=== PATIENT | female | born 1940 | race Caucasian/White ===

== ENCOUNTER → 2019-12-16 13:21 | Outpatient (ROUT) | payer MEDICARE, SELFPAY ==
[2019-12-19 23:36] LABS: COVID19 Sendout Not Detected (Not Detected)
== END ==
PROVIDERS: Visit Provider Internal Medicine
DX: Z11.59 Encounter for screening for other viral diseases (principal)
CPT/HCPCS: 87635

== ENCOUNTER → 2019-12-18 11:14 | Outpatient (ROUT) | payer MEDICARE, SELFPAY ==
[2019-12-21 19:38] LABS: Creatinine, 24 Urine 448 mg/24 hr (800-1800); Creatinine,Urine 99.6 mg/dL (Not Estab.); Dopamine, Ur 24hr 45 ug/24 hr (0-510); Epinephrine, U 24hr 1 ug/24 hr (0-20); Norepinephrine Ur 24hr 10 ug/24 hr (0-135)
[2019-12-23 07:10] LABS: Normetanephrine Total 226 ug/24 hr (131-612); Urine, Metanephrine 152 ug/L (Undefined); Urine, Normetanephrine 502 ug/L (Undefined)
== END ==
PROVIDERS: Visit Provider Internal Medicine Nephrology
DX: I70.1 Atherosclerosis of renal artery (principal); N17.9 Acute kidney failure, unspecified
CPT/HCPCS: 82384; 83835

== ENCOUNTER → 2019-12-23 13:14 | Outpatient (CLI) | payer MEDICARE, SELFPAY ==
--- NOTE | 2019-12-23 | DI.RAD.S_ITS ---
PROCEDURE: XR CHEST 2V INDICATIONS: Pneumonia, unspecified organism TECHNIQUE: 2 views of the chest were acquired. COMPARISON: None. FINDINGS: Surgical changes and devices: Dual-chamber cardiac pacemaking device and leads appear normal.. Lungs and pleura: Lungs are mildly edematous. There are small sub pulmonic bilateral pleural effusions, left greater than right. No pneumothorax. Mediastinum: Mediastinal contours are normal. Heart size is mildly enlarged. Bones and chest wall: No suspicious bony abnormalities. Soft tissues appear unremarkable. IMPRESSION: Mild CHF pattern, small bilateral left greater than right pleural effusions. Mild cardiomegaly, mild generalized pulmonary edema. Pacemaker normal. Dictated by: Janes Faith M.D. on 12/23/2019 at 14:09 Approved by: Janes Faith M.D. on 12/23/2019 at 14:11
== END ==
PROVIDERS: Referring Provider Nurse Practitioner; Visit Provider Nurse Practitioner
DX: J18.9 Pneumonia, unspecified organism (principal); I50.1 Left ventricular failure, unspecified; J90 Pleural effusion, not elsewhere classified; I51.7 Cardiomegaly; Z95.0 Presence of cardiac pacemaker
CPT/HCPCS: 71046

== ENCOUNTER → 2019-12-26 11:01 | Outpatient (CLI) | payer MEDICARE, SELFPAY | PROVIDERS: Referring Provider Nurse Practitioner; Visit Provider Nurse Practitioner | DX: R07.89 Other chest pain (principal) | CPT/HCPCS: 93005 ==

== ENCOUNTER 2019-12-26 13:33 | Emergency (ER) | payer MEDICARE, SELFPAY ==
[2019-12-26] VITALS (14 sets, daily range): BP systolic 145–197; BP diastolic 65–86; PULSE 60–87; RESP 11–26; TEMP 36.8; O2SAT 92–97; BMI 32.3
--- NOTE | 2019-12-26 13:36 | DI.RAD.S_ITS ---
PROCEDURE: XR CHEST 1V INDICATIONS: chest pain TECHNIQUE: One view of the chest was acquired. COMPARISON: [facility], CR, XR CHEST 2V, 12/23/2019, 13:19. FINDINGS: Surgical changes and devices: Cardiac pacer.. Retrocardiac opacity. Bibasilar atelectasis. There is also scattered ground-glass opacity in the perihilar regions and lung bases no pneumothorax. Cannot exclude small left pleural effusion. Mediastinum: Mediastinal contours appear normal. Heart size is normal. Bones and chest wall: No suspicious bony lesions. Overlying soft tissues appear unremarkable. IMPRESSION: Widespread bilateral ground-glass opacities suggestive of pulmonary edema. Additional retrocardiac opacity could represent atelectasis/aspiration versus pneumonia. Technically cannot exclude small left pleural effusion. If there is persistent clinical diagnostic uncertainty, continued surveillance with short interval chest radiographs after treatment is recommended. Dictated by: Armando Kitchen M.D. on 12/26/2019 at 14:47 Approved by: Armando Kitchen M.D. on 12/26/2019 at 14:51
[2019-12-26 14:22] LABS: INR 1.2 (0.9-1.3); Prothrombin Time 13.5 SECONDS (10.1-12.7)
[2019-12-26 14:24] LABS: Add Manual Diff / Slide Review NO; Basophils Absolute Auto 0 /uL (0-100); Basophils Percent Auto 0.6 % (0-2); Eosinophils Absolute Auto 200 /uL (0-450); Eosinophils Percent Auto 2.6 % (2-4); Hematocrit 28.3 % (36-46); Hemoglobin 9.1 g/dL (12.0-16.0); Lymphocytes Absolute Auto 2200 /uL (1100-4500); Lymphocytes Percent Auto 36.7 % (25-40); Mean Corpuscular HGB Conc 32.3 % (30-36); Mean Corpuscular Hemoglobin 28.8 PG (26-34); Mean Corpuscular Volume 89.2 fL (80-100); Monocytes Absolute Auto 500 /uL (0-900); Monocytes Percent Auto 9.2 % (3-14); Neutrophils Absolute Auto 3000 /uL (1500-7000); Neutrophils Percent Auto 50.9 % (50-75); Platelet Count 174 X10^3/uL (150-400); Red Blood Cell Count 3.17 X10^6/uL (4.0-5.2); Red Cell Distribution Width 14.9 % (11.6-14.8); White Blood Cell Count 5.9 X10^3/uL (4.5-11.0)
[2019-12-26 14:25] LABS: PTT Partial Thromboplastin Tim 27 SECONDS (26.4-36.2)
[2019-12-26 14:27] LABS: Alanine Aminotransferase 14 IU/L (<35); Albumin 3.7 g/dL (3.5-5.0); Albumin Globulin Ratio 1.3 (1.0-2.8); Alkaline Phosphatase 89 U/L (38-126); Aspartate Aminotransferase 21 IU/L (14-36); BUN Creatinine Ratio 15.3 (6-22); Bilirubin Total 0.4 mg/dL (0.2-1.3); Blood Urea Nitrogen 20 mg/dL (7-17); Calcium 9.3 mg/dL (8.4-10.2); Carbon Dioxide 30 mmol/L (22-32); Chloride 101 mmol/L (98-107); Creatine Kinase 39 U/L (30-135); Globulin 2.9 g/dL (1.7-4.1); Glucose 134 mg/dL (80-110); HEMOLYSIS < 15 (0-50); Lipase 42 U/L (23-300); Potassium 3.8 mmol/L (3.4-5.1); Sodium 137 mmol/L (137-145); Total Protein 6.6 g/dL (6.3-8.2)
[2019-12-26 14:39] LABS: Troponin I 0.024 ng/mL (0.01-0.034)
--- NOTE | 2019-12-26 15:46 | ED_ITS ---
HPI - SOB/Dyspnea General Chief Complaint: Shortness of Breath/Dyspnea Stated Complaint: Chest Pain Time Seen by Provider: 12/26/19 15:24 Source: EMS Mode of arrival: EMS History of Present Illness HPI Narrative: CC: SOB HPI: The patient is an 79-year-old female who is a [facility]. The patient states that she is in rehab for a blood pressure that is bouncing all around. She developed chest tightness associated with shortness of breath. She states that she becomes short of breath shortly after getting out of bed and moving around. At rest she is not very short of breath. She has had pressure and tightness in her chest which lasts for a short time. She denies any shoulder pain arm pain neck pain jaw pain or back pain. She denies any recent fall or injury. She has had generalized weakness and fatigue. She denies a history of congestive heart failure previous myocardial infarction asthma diabetes mellitus but admits to history of hypertension. She has had no fevers but has had intermittent chills and sweats. She denies any headache nasal drainage sinus congestion dysphagia. She has had a dry unproductive cough with shortness of breath dizziness and lightheadedness. She has had nausea but no vomiting diarrhea. She has had no urinary symptoms. She denies a history of pulmonary emboli or deep vein thrombophlebitis as well as hepatitis TB or HIV. She has had no Sulph[place] it exposure. She states that she smokes cigarettes for a brief period in her use but has not drink alcohol or use any drugs such as marijuana. Related Data Previous Rx's Medication Instructions Recorded nitroglycerin 0.4 mg SL Q5-15M PRN #25 tab 12/26/19 Allergies Allergy/AdvReac Type Severity Reaction Status Date / Time amlodipine Allergy Verified 12/26/19 13:42 amoxicillin Allergy Verified 12/26/19 13:42 Cephalosporins Allergy Verified 12/26/19 13:42 clarithromycin Allergy Verified 12/26/19 13:42 enalapril Allergy Verified 12/26/19 13:42 levofloxacin Allergy Verified 12/26/19 13:42 spironolactone Allergy Verified 12/26/19 13:42 sulfamethoxazole Allergy Verified 12/26/19 13:42 trimethoprim Allergy Verified 12/26/19 13:42 Review of Systems Review of Systems Narrative: Her review of systems were all negative except for those mentioned in the history of present illness. Patient History Social History Smoking Status: Never smoker Smoking Status: Never smoker Substance Use Type: does not use Exam Narrative Exam Narrative: PHYSICAL EXAM: CONSTITUTIONAL: Awake, Alert, Oriented, Coherent, Cooperative in NAD. Does not appear toxic or ill. HEAD: AT/NC EENT: PERRL, FROM of eyes, no discharge,. NOSE:No epistaxis or nasal drainage MOUTH:Oral mucosa is moist and pink, . NECK: Supple, no obvious JVD, Trachea is midline without stridor, no palpable LN. SPINE: Palpationof the cervical, Thoracic, Lumbar or Sacral spine reveals no gross deformity or tenderness. No CVA tenderness. THORAX: No deformity, retractions, chest wall tenderness. LUNGS: Clear, symmetrical breath sounds with a few bibasilar crackles without respiratory distress. HEART: Normal heart tones, regular rhythm and rate without murmur. ABDOMEN: Soft, non-tender, without guarding, rebound, rigidity or palpable mass. EXTREMITIES: No edema, deformity, tenderness or cyanosis. SKIN: No rash, bruising, petechiae or purpura. NEURO: Awake, alert, oriented, conversive, cranial nerves II-XII are symmetrical , moves all 4 extremities and is ambulatory. Initial Vital Signs Initial Vital Signs: Vital Signs Temperature 98.2 F 12/26/19 13:36 Pulse Rate 87 12/26/19 13:36 Respiratory Rate 20 12/26/19 13:36 Blood Pressure 161/86 H 12/26/19 13:36 Pulse Oximetry 94 12/26/19 13:36 Course Course Course Narrative: 1559: The patient's troponin on admission at 1:54 p.m. was 0.024. A repeat EKG will be obtained on the patient as well as a repeat troponin. 1648: The patient's arterial blood gases revealed a pH is 7.446 a pCO2 of 45.2 a PO2 of 73 and oxygen saturation 95% on an FiO2 of 28% The patient's repeat EKG obtained on December 25 at 4:12 p.m. reveals an RR prime confirmation with an atrial paced rhythm at a ventricular rate of 60. RI interval is 184 milliseconds QRS is 128 milliseconds QTC is slightly prolonged at 468 ms. axis is borderline normal. The patient has T-wave inversions in leads III AVF V3 V1 and V4. T-wave is flat in V2. This suggests that the patient has anterior and inferior ischemic changes. There are no acute diagnostic ST segment changes. Orders Ordered: ED Orders 12/26/19 13:36 XR chest 1V Stat EKG-12 Lead Stat 12/26/19 13:54 Complete Blood Count AUTO DIFF Stat Comprehensive Metabolic Panel Stat Lipase Stat Partial Thromboplastin Time Stat Prothrombin Time INR Stat Troponin & CK Cardiac Panel Stat 12/26/19 16:00 EKG-12 Lead Stat 12/26/19 16:13 Troponin I Stat 12/26/19 16:20 Arterial Blood Gas Stat Vital Signs Vital signs: Vital Signs - 8 hr 12/26/19 13:36 12/26/19 14:00 12/26/19 14:07 Temperature 98.2 F Pulse Rate 87 71 Respiratory Rate 20 16 Blood Pressure 161/86 H 145/65 H Pulse Oximetry 94 94 12/26/19 14:30 12/26/19 15:00 12/26/19 15:30 Temperature Pulse Rate 62 75 60 Respiratory Rate 13 13 17 Blood Pressure 159/67 H 171/73 H Pulse Oximetry 94 94 92 12/26/19 15:31 12/26/19 16:00 12/26/19 16:30 Temperature Pulse Rate 60 69 60 Respiratory Rate 11 L 17 26 H Blood Pressure 164/67 H 165/66 H 178/70 H Pulse Oximetry 94 97 93 12/26/19 17:00 12/26/19 17:01 12/26/19 17:04 Temperature Pulse Rate 61 60 61 Respiratory Rate 15 17 14 Blood Pressure 197/76 H 168/72 H Pulse Oximetry 94 93 94 12/26/19 17:30 12/26/19 18:00 Temperature Pulse Rate 66 60 Respiratory Rate 22 20 Blood Pressure 177/72 H 170/70 H Pulse Oximetry 93 93 MDM - SOB/Dyspnea Medical Records Attestation: I reviewed the patient's medical records. Lab Data Attestation: I reviewed the patient's lab results. Result diagrams: 12/26/19 13:54 12/26/19 13:54 Labs: Lab Results 12/26/19 12/26/19 12/26/19 Range/Units 13:54 13:54 13:54 WBC 5.9 (4.5-11.0) X10^3/uL RBC 3.17 L (4.0-5.2) X10^6/uL Hgb 9.1 L (12.0-16.0) g/dL Hct 28.3 L (36-46) % MCV 89.2 (80-100) fL MCH 28.8 (26-34) PG MCHC 32.3 (30-36) % RDW 14.9 H (11.6-14.8) % Plt Count 174 (150-400) X10^3/uL Neut % (Auto) 50.9 (50-75) % Lymph % (Auto) 36.7 (25-40) % [place] % (Auto) 9.2 (3-14) % Eos % (Auto) 2.6 (2-4) % Baso % (Auto) 0.6 (0-2) % Neut # (Auto) 3000 (4172-5504) /uL Lymph # (Auto) 2200 (6470-7105) /uL [place] # (Auto) 500 (0-900) /uL Eos # (Auto) 200 (0-450) /uL Baso # (Auto) 0 (0-100) /uL PT 13.5 H (10.1-12.7) SECONDS INR 1.2 (0.9-1.3) APTT 27 (26.4-36.2) SECONDS ABG pH (7.35-7.45) ABG pCO2 (35-45) mmHg ABG pO2 (80-100) mmHg ABG HCO3 (22-26) mmol/L ABG Total CO2 (21-31) mmol/L ABG O2 Saturation (95-100) % ABG Base Excess (-2-2) mmol/L FiO2 Sodium 137 (137-145) mmol/L Potassium 3.8 (3.4-5.1) mmol/L Chloride 101 (98-107) mmol/L Carbon Dioxide 30 (22-32) mmol/L BUN 20 H (7-17) mg/dL Creatinine 1.31 H (0.52-1.04) mg/dL Estimated GFR 39.0 L (>60) mL/min BUN/Creatinine Ratio 15.3 (6-22) Glucose 134 H (80-110) mg/dL Calcium 9.3 (8.4-10.2) mg/dL Total Bilirubin 0.4 (0.2-1.3) mg/dL AST 21 (14-36) IU/L ALT 14 (<35) IU/L Alkaline Phosphatase 89 (38-126) U/L Total Creatine Kinase 39 (30-135) U/L CK-MB (CK-2) TNP CK-MB (CK-2) Rel Index TNP Troponin I 0.024 (0.01-0.034) ng/mL Total Protein 6.6 (6.3-8.2) g/dL Albumin 3.7 (3.5-5.0) g/dL Globulin 2.9 (1.7-4.1) g/dL Albumin/Globulin Ratio 1.3 (1.0-2.8) Lipase 42 (23-300) U/L 12/26/19 12/26/19 Range/Units 16:13 16:20 WBC (4.5-11.0) X10^3/uL RBC (4.0-5.2) X10^6/uL Hgb (12.0-16.0) g/dL Hct (36-46) % MCV (80-100) fL MCH (26-34) PG MCHC (30-36) % RDW (11.6-14.8) % Plt Count (150-400) X10^3/uL Neut % (Auto) (50-75) % Lymph % (Auto) (25-40) % [place] % (Auto) (3-14) % Eos % (Auto) (2-4) % Baso % (Auto) (0-2) % Neut # (Auto) (6698-3584) /uL Lymph # (Auto) (9705-0306) /uL [place] # (Auto) (0-900) /uL Eos # (Auto) (0-450) /uL Baso # (Auto) (0-100) /uL PT (10.1-12.7) SECONDS INR (0.9-1.3) APTT (26.4-36.2) SECONDS ABG pH 7.45 (7.35-7.45) ABG pCO2 45.2 H (35-45) mmHg ABG pO2 73 L (80-100) mmHg ABG HCO3 31 H (22-26) mmol/L ABG Total CO2 33 H (21-31) mmol/L ABG O2 Saturation 95 (95-100) % ABG Base Excess 7.0 H (-2-2) mmol/L FiO2 21 Sodium (137-145) mmol/L Potassium (3.4-5.1) mmol/L Chloride (98-107) mmol/L Carbon Dioxide (22-32) mmol/L BUN (7-17) mg/dL Creatinine (0.52-1.04) mg/dL Estimated GFR (>60) mL/min BUN/Creatinine Ratio (6-22) Glucose (80-110) mg/dL Calcium (8.4-10.2) mg/dL Total Bilirubin (0.2-1.3) mg/dL AST (14-36) IU/L ALT (<35) IU/L Alkaline Phosphatase (38-126) U/L Total Creatine Kinase (30-135) U/L CK-MB (CK-2) CK-MB (CK-2) Rel Index Troponin I 0.022 (0.01-0.034) ng/mL Total Protein (6.3-8.2) g/dL Albumin (3.5-5.0) g/dL Globulin (1.7-4.1) g/dL Albumin/Globulin Ratio (1.0-2.8) Lipase (23-300) U/L ECG Data Attestation: I personally reviewed and interpreted this ECG as follows: Interpretation: 1547: The patient's EKG obtained on December 25 at 1:40 p.m. reveals an atrial paced rhythm with a ventricular rate of 61 p.r. interval is 194 milliseconds QRS duration is 126 milliseconds QTC is slightly prolonged at 463 milliseconds with left axis deviation. The patient has an incomplete right bundle branch block pattern with inverted T-waves in leads III AVF V3 and V1 and V4. There are no other acute diagnostic ST or T-wave changes noted. Inverted T-waves in the anterior leads and inferior leads which suggest possible ischemia. 1809: Patient feels much better. The patient states that she is on Lasix which was started 3 days ago but she was not placed on a water restriction. Her chest x-ray suggests that she has pulmonary edema. The patient does not appear to be in any acute distress or hypoxic. However when she exerts herself in the rehab center she becomes short of breath. She was advised to keep a record of her blood pressures and a graft that on graph paper so that it creates a pattern for her doctors to see. She was advised to make a follow-up appointment with her center line cutter operator and that she may need a echocardiogram with the EKG changes. She was advised to take the Lasix as prescribed however if she is drinking more fluid than she is urinating out the Lasix serves no purpose. She will be placed on a 2 L fluid restriction and be advised to be re-evaluated by her primary care physician in 48 hours. Discharge Plan Departure Patient Disposition: Home Clinical Impression: Shortness of Breath Congestive heart failure Qualifiers: Heart failure type: unspecified Heart failure chronicity: unspecified Qualified Code(s): I50.9 - Heart failure, unspecified Fatigue Qualifiers: Fatigue type: unspecified Qualified Code(s): R53.83 - Other fatigue Discharge Date/Time: 12/26/19 19:19 Instructions: DI for Heart Failure, DI for Angina, DI for Shortness of Breath Activity Restrictions/Additional Instructions: 1. Take your medications as prescribed. 2. When you developed long periods of shortness of breath or chest pain, chest tightness take a nitroglycerin tablet and see if your pain and shortness of breath improve. If it does not take a 2nd tablet and 5 minutes and again in 5 minutes up to a total of 3 in 15 minutes. If you are taking nitroglycerin take it while you are sitting down or lying down. Taking it while standing may cause you to become dizzy lightheaded and pass out. 3. Graph your blood pressures on graph paper so we can see a pattern and you can see whether not it is in the ranges tablets by your primary care physician 4. For make an appointment and follow-up with your center line cutter operator you may need to have a repeat echocardiogram. 5. Try and keep a record that approximates your oral intake of fluid and your urine output of fluid. 6. Limit your total fluid intake to 2 L per day to see whether or not your shortness of breath and swelling of your legs improve s with the initiation of your lasix diuretic therapy. 7. If you developed chest tightness, chest pain, racing of your heart, persiste nt shortness of breath, intense nausea and vomiting uncontrolled and unable to keep her medications down you need to return to the emergency department. If you develop chest pain that lasts longer than 15-20 minutes and is unrelieved by the nitro you need to return to the emergency department. * it is important that you are re-evaluated by your primary care physician in 48-72 hours to evaluate your SOB, chest tightness, fluid status and renal function. Prescriptions: New nitroglycerin 0.4 mg tablet, sublingual 0.4 mg SL Q5-15M PRN (Reason: chest pain) Qty: 25 RF: 1
[2019-12-26 16:27] LABS: PCO2 ABG 45.2 mmHg (35-45); PO2 ABG 73 mmHg (80-100); pH ABG 7.45 (7.35-7.45)
[2019-12-26 16:28] LABS: Fractionated Inspired Oxygen 21; HCO3 ABG 31 mmol/L (22-26); Oxygen Saturation ABG 95 % (95-100); TCO2 ABG 33 mmol/L (21-31)
[2019-12-26 16:43] LABS: Troponin I 0.022 ng/mL (0.01-0.034)
== END 2019-12-26 19:19 | disposition home or self-care (01) ==
PROVIDERS: Emergency Provider Emergency Medicine
DX: I11.0 Hypertensive heart disease with heart failure (principal); I50.9 Heart failure, unspecified; R06.02 Shortness of breath; R53.83 Other fatigue; R05 Cough; R11.0 Nausea; R07.89 Other chest pain
CPT/HCPCS: 36415; 36600; 71045; 80053; 82550; 82805; 83690; 84484; 85025; 85610; 85730; 93005; 99284